=== PATIENT | female | born 1950 | race Caucasian/White ===

== ENCOUNTER 2021-12-29 09:14 | Inpatient (IN) | payer OTHER ==
[~2021-12-29] VITALS: Ht 162.6 cm; Wt 109.7 kg
[2021-12-29 10:22] LABS: Basophils # (auto) 0.1 10 ^3/uL (0-0.2); Basophils % (auto) 1.2 % (0.0-2.0); Eosinophils # (auto) 0.3 10 ^3/uL (0-0.8); Eosinophils % (auto) 6.1 % (0.0-7.0); Hematocrit 30.1 % (36.0-46.0); Lymphocytes # (auto) 0.7 10 ^3/uL (0.4-5.4); Lymphocytes % (auto) 13.4 % (10.0-50.0); Mean Corpuscular Hemoglobin 32.8 pg (28.0-32.0); Mean Corpuscular Hgb Conc. 33.3 g/dL (32.0-36.0); Mean Corpuscular Volume 98.7 fL (80.0-100.0); Monocytes # (auto) 0.3 10 ^3/uL (0-1.3); Monocytes % (auto) 5.6 % (0.0-12.0); Neutrophils # (auto) 3.9 10 ^3/uL (1.6-8.6); Neutrophils % (auto) 73.7 % (37.0-80.0); Nucleated Red Blood Cells % 0.2 %; Red Blood Cells 3.05 10^6/uL (4.0-5.20); Red Cell Distribution Width 17.8 % (11.8-14.3); White Blood Cell 5.3 10^3/uL (4.4-10.8)
[2021-12-29 10:29] LABS: Albumin 1.9 g/dL (3.4-5.0); Calcium 7.7 mg/dL (8.5-10.1); Potassium 3.9 mmol/L (3.5-5.1)
[2021-12-29 10:33] LABS: BUN/Creatinine Ratio 13.8; Bilirubin, Total 2.2 mg/dL (0.2-1.0); Total Protein 4.6 g/dL (6.4-8.2)
[2021-12-29 10:40] LABS: INR 1.34 (0.9-1.15); Partial Thromboplastin Time 32.7 sec (24.6-33.4)
[2021-12-29] MEDS ORDERED: SODIUM CHLORIDE 0.9% 1,000 ML IV ONE (10:45)
[2021-12-29 11:48] LABS: Magnesium 1.7 mg/dL (1.6-2.6)
[2021-12-29 12:35] LABS: Urine Bacteria MANY /hpf (None Seen); Urine Blood 3+ /uL (Negative); Urine Mucus FEW (None Seen); Urine WBC 261 /hpf (0 - 5); Urine WBC Clumps PRESENT /hpf (None Seen)
[2021-12-29] MEDS ORDERED: FUROSEMIDE 40 MG/4 ML VIAL IV ONE (16:15)
[2021-12-29] MEDS ORDERED: LACTULOSE 20Gm/30ML SOLN PO ONE (16:15)
[2021-12-29] MEDS ORDERED: cefTRIAXone 1GM/50ML D5W 50 ML IV ONE (16:15)
[2021-12-29] MEDS ORDERED: SPIRONOLACTONE 25 MG TAB PO ONE (16:15)
[2021-12-29] MEDS ORDERED: NITROGLYCERIN 0.4 MG SL TAB SL PRN (16:45)
[2021-12-29] MEDS ORDERED: ALBUMIN 25% 100 ML IV ONE ×2 (16:45→17:01)
[2021-12-29] MEDS ORDERED: MORPHINE SULFATE INJ 2 MG/ml SYRG IV PRN ×2 (16:45)
[2021-12-29] MEDS: SODIUM CHLORIDE 0.9% 1,000 ML IV SCH (17:06)
[2021-12-29 17:33] LABS: Cholesterol 90 mg/dL (< 200); HDL Cholesterol 32 mg/dL (40-59); LDL Cholesterol 52 mg/dL (< 100); Triglycerides 83 mg/dL (< 150)
[2021-12-29] MEDS: CLINDAMYCIN 600MG IV 50 ML IV SCH (22:47)
[2021-12-30] MEDS: SODIUM CHLORIDE 0.9% 1,000 ML IV SCH ×2 (03:27→11:22)
[2021-12-30 05:00] VITALS: BP 98/40
[2021-12-30 05:22] LABS: Basophils # (auto) 0 10 ^3/uL (0-0.2); Eosinophils # (auto) 0.3 10 ^3/uL (0-0.8); Eosinophils % (auto) 6.6 % (0.0-7.0); Hematocrit 29.4 % (36.0-46.0); Hemoglobin 9.8 g/dL (12.2-16.2); Lymphocytes # (auto) 0.5 10 ^3/uL (0.4-5.4); Lymphocytes % (auto) 10.8 % (10.0-50.0); Mean Corpuscular Hgb Conc. 33.5 g/dL (32.0-36.0); Mean Corpuscular Volume 98.5 fL (80.0-100.0); Monocytes # (auto) 0.3 10 ^3/uL (0-1.3); Monocytes % (auto) 6.3 % (0.0-12.0); Neutrophils # (auto) 3.2 10 ^3/uL (1.6-8.6); Neutrophils % (auto) 75.3 % (37.0-80.0); Nucleated Red Blood Cells % 0.3 %; Red Blood Cells 2.98 10^6/uL (4.0-5.20); White Blood Cell 4.2 10^3/uL (4.4-10.8)
[2021-12-30 05:41] LABS: Albumin 2.1 g/dL (3.4-5.0); Calcium 7.6 mg/dL (8.5-10.1); Potassium 3.6 mmol/L (3.5-5.1)
[2021-12-30 05:44] LABS: BUN/Creatinine Ratio 14.5
[2021-12-30 05:46] LABS: Bilirubin, Total 1.7 mg/dL (0.2-1.0); Total Protein 4.4 g/dL (6.4-8.2)
[2021-12-30] MEDS: CLINDAMYCIN 600MG IV 50 ML IV SCH ×2 (05:53→13:11)
[2021-12-30 08:00] VITALS: BP 87/37
[2021-12-30] MEDS: cefTRIAXone 1GM/50ML D5W 50 ML IV SCH (08:00)
[2021-12-30 08:30] VITALS: BP 87/37
[2021-12-30] MEDS ORDERED: SPIR100T4 PO (08:35)
[2021-12-30] MEDS ORDERED: FURO40TA4 PO (08:35)
[2021-12-30] MEDS ORDERED: SPIRONOLACTONE 25 MG TAB PO SCH ×2 (10:00→18:00)
[2021-12-30] MEDS ORDERED: FUROSEMIDE 40 MG TAB PO SCH (10:00)
[2021-12-30] MEDS ORDERED: ENOXAPARIN SOD 40 MG/0.4 ML SYRINGE SC SCH (10:00)
[2021-12-30] MEDS: POTASSIUM CHL 10 Meq TABLET PO SCH (10:07)
[2021-12-30] MEDS: LACTULOSE 20Gm/30ML SOLN PO SCH (10:07)
[2021-12-30] MEDS: ACETAMINOPHEN 325 MG TAB PO PRN ×2 (10:20→23:06)
[2021-12-30 12:00] VITALS: BP 74/24
[2021-12-30] MEDS ORDERED: SODIUM CHLORIDE 0.9% 250 ML IV ONE ×2 (14:45)
[2021-12-30] MEDS ORDERED: SODIUM CHLORIDE 0.9% 1,000 ML IV SCH (15:00)
[2021-12-30 16:00] VITALS: BP 81/28
[2021-12-30] MEDS ORDERED: VANCOMYCIN PER PHARMACY 0 MG IV SCH (18:00)
[2021-12-30] MEDS ORDERED: VANCOMYCIN 1GM/250ML 250 ML IV ONE (18:45)
[2021-12-30] MEDS: MIDODRINE HCL 10 MG TAB PO SCH (19:01)
[2021-12-30 22:00] VITALS: BP 81/37
[2021-12-30] MEDS ORDERED: VANCOMYCIN 500 MG in D5W 5% 100 ML IV ONE (22:45)
[2021-12-31] MEDS: ACETAMINOPHEN 325 MG TAB PO PRN (04:41)
[2021-12-31 05:00] VITALS: BP 88/45
[2021-12-31] MEDS: MIDODRINE HCL 10 MG TAB PO SCH ×3 (05:15→18:03)
[2021-12-31 05:53] LABS: Basophils # (auto) 0 10 ^3/uL (0-0.2); Basophils % (auto) 0.9 % (0.0-2.0); Eosinophils # (auto) 0.4 10 ^3/uL (0-0.8); Eosinophils % (auto) 8.2 % (0.0-7.0); Hematocrit 28.4 % (36.0-46.0); Hemoglobin 9.6 g/dL (12.2-16.2); Lymphocytes # (auto) 0.7 10 ^3/uL (0.4-5.4); Lymphocytes % (auto) 15.7 % (10.0-50.0); Mean Corpuscular Hemoglobin 33.3 pg (28.0-32.0); Mean Corpuscular Hgb Conc. 33.7 g/dL (32.0-36.0); Mean Corpuscular Volume 98.7 fL (80.0-100.0); Monocytes # (auto) 0.3 10 ^3/uL (0-1.3); Monocytes % (auto) 6.1 % (0.0-12.0); Neutrophils # (auto) 3.3 10 ^3/uL (1.6-8.6); Neutrophils % (auto) 69.1 % (37.0-80.0); Nucleated Red Blood Cells % 0.1 %; Red Blood Cells 2.88 10^6/uL (4.0-5.20); Red Cell Distribution Width 17.6 % (11.8-14.3); White Blood Cell 4.8 10^3/uL (4.4-10.8)
[2021-12-31 06:07] LABS: Calcium 7.1 mg/dL (8.5-10.1); Potassium 3.3 mmol/L (3.5-5.1)
[2021-12-31 08:00] VITALS: BP 84/35
[2021-12-31 08:05] VITALS: BP 84/55
[2021-12-31] MEDS: cefTRIAXone 1GM/50ML D5W 50 ML IV SCH (08:06)
[2021-12-31] MEDS: POTASSIUM CHL 10 Meq TABLET PO SCH (09:21)
[2021-12-31] MEDS: LACTULOSE 20Gm/30ML SOLN PO SCH (09:21)
[2021-12-31] MEDS ORDERED: FUROSEMIDE 40 MG TAB PO SCH (10:00)
[2021-12-31] MEDS ORDERED: VANCOMYCIN 1GM/250ML 250 ML IV ONE (11:00)
[2021-12-31 12:00] VITALS: BP 98/35
[2021-12-31 16:00] VITALS: BP 90/40
[2021-12-31 22:00] VITALS: BP 84/35
[2022-01-01] VITALS (17 sets, daily range): BP systolic 75–97; BP diastolic 29–45
[2022-01-01] MEDS: ACETAMINOPHEN 325 MG TAB PO PRN ×2 (00:46→18:56)
[2022-01-01] MEDS: MIDODRINE HCL 10 MG TAB PO SCH ×3 (05:19→18:45)
[2022-01-01 05:50] LABS: INR 1.4 (0.9-1.15); Partial Thromboplastin Time 39.7 sec (24.6-33.4)
[2022-01-01 05:51] LABS: BUN/Creatinine Ratio 13.9; Calcium 7.2 mg/dL (8.5-10.1); Potassium 3.4 mmol/L (3.5-5.1)
[2022-01-01 09:24] LABS: Basophils # (auto) 0.1 10 ^3/uL (0-0.2); Basophils % (auto) 1.1 % (0.0-2.0); Eosinophils # (auto) 0.5 10 ^3/uL (0-0.8); Eosinophils % (auto) 8.2 % (0.0-7.0); Hemoglobin 9.5 g/dL (12.2-16.2); Lymphocytes % (auto) 18.1 % (10.0-50.0); Mean Corpuscular Hemoglobin 32.5 pg (28.0-32.0); Mean Corpuscular Hgb Conc. 32.8 g/dL (32.0-36.0); Mean Corpuscular Volume 99.2 fL (80.0-100.0); Monocytes # (auto) 0.3 10 ^3/uL (0-1.3); Monocytes % (auto) 6.2 % (0.0-12.0); Neutrophils # (auto) 3.7 10 ^3/uL (1.6-8.6); Neutrophils % (auto) 66.4 % (37.0-80.0); Red Blood Cells 2.93 10^6/uL (4.0-5.20); Red Cell Distribution Width 17.9 % (11.8-14.3); White Blood Cell 5.6 10^3/uL (4.4-10.8)
[2022-01-01] MEDS: cefTRIAXone 1GM/50ML D5W 50 ML IV SCH (09:36)
[2022-01-01] MEDS: POTASSIUM CHL 10 Meq TABLET PO SCH (09:36)
[2022-01-01] MEDS: LACTULOSE 20Gm/30ML SOLN PO SCH (09:36)
[2022-01-01] MEDS ORDERED: ALBUMIN 25% 100 ML IV ONE (10:45)
[2022-01-01] MEDS: ALBUMIN 25% 100 ML IV SCH ×2 (12:30→18:45)
[2022-01-02] MEDS: ACETAMINOPHEN 325 MG TAB PO PRN ×2 (01:21→17:25)
[2022-01-02] MEDS: ALBUMIN 25% 100 ML IV SCH ×3 (01:23→17:24)
[2022-01-02 04:42] VITALS: BP 80/38
[2022-01-02 05:00] VITALS: BP 97/38
[2022-01-02] MEDS: MIDODRINE HCL 10 MG TAB PO SCH ×3 (05:02→17:24)
[2022-01-02 06:22] LABS: BUN/Creatinine Ratio 15.6; Calcium 7.6 mg/dL (8.5-10.1); Potassium 3.3 mmol/L (3.5-5.1)
[2022-01-02 07:01] LABS: Basophils # (auto) 0 10 ^3/uL (0-0.2); Basophils % (auto) 0.9 % (0.0-2.0); Eosinophils # (auto) 0.3 10 ^3/uL (0-0.8); Eosinophils % (auto) 7.4 % (0.0-7.0); Hematocrit 26.4 % (36.0-46.0); Hemoglobin 8.8 g/dL (12.2-16.2); Lymphocytes # (auto) 0.6 10 ^3/uL (0.4-5.4); Lymphocytes % (auto) 13.7 % (10.0-50.0); Mean Corpuscular Hemoglobin 33.2 pg (28.0-32.0); Mean Corpuscular Hgb Conc. 33.2 g/dL (32.0-36.0); Monocytes # (auto) 0.3 10 ^3/uL (0-1.3); Nucleated Red Blood Cells % 0.2 %; Red Blood Cells 2.64 10^6/uL (4.0-5.20); Red Cell Distribution Width 17.8 % (11.8-14.3); White Blood Cell 4.2 10^3/uL (4.4-10.8)
[2022-01-02 08:52] VITALS: BP 100/35
[2022-01-02] MEDS: cefTRIAXone 1GM/50ML D5W 50 ML IV SCH (08:54)
[2022-01-02] MEDS: POTASSIUM CHL 10 Meq TABLET PO SCH (10:32)
[2022-01-02] MEDS: LACTULOSE 20Gm/30ML SOLN PO SCH (10:36)
[2022-01-02 13:13] VITALS: BP 87/33
[2022-01-03] VITALS (8 sets, daily range): BP systolic 88–101; BP diastolic 31–58
[2022-01-03] MEDS: ALBUMIN 25% 100 ML IV SCH (02:18)
[2022-01-03] MEDS: MIDODRINE HCL 10 MG TAB PO SCH ×3 (06:08→20:52)
[2022-01-03] MEDS: LACTULOSE 20Gm/30ML SOLN PO SCH (09:57)
[2022-01-03] MEDS: POTASSIUM CHL 10 Meq TABLET PO SCH (09:57)
[2022-01-03] MEDS: cefTRIAXone 1GM/50ML D5W 50 ML IV SCH (09:57)
[2022-01-03] MEDS: ACETAMINOPHEN 325 MG TAB PO PRN ×2 (09:57→21:40)
[2022-01-03] MEDS ORDERED: PHYTONADIONE (VIT K)10 MG/ML 1ML VIAL SUBCUT ONE (14:00)
[2022-01-03 14:49] LABS: Basophils # (auto) 0 10 ^3/uL (0-0.2); Basophils % (auto) 0.7 % (0.0-2.0); Eosinophils # (auto) 0.2 10 ^3/uL (0-0.8); Eosinophils % (auto) 4.1 % (0.0-7.0); Hematocrit 22.9 % (36.0-46.0); Hemoglobin 7.5 g/dL (12.2-16.2); Lymphocytes # (auto) 0.6 10 ^3/uL (0.4-5.4); Lymphocytes % (auto) 11.1 % (10.0-50.0); Mean Corpuscular Hgb Conc. 32.5 g/dL (32.0-36.0); Mean Corpuscular Volume 98.5 fL (80.0-100.0); Monocytes # (auto) 0.3 10 ^3/uL (0-1.3); Monocytes % (auto) 5.4 % (0.0-12.0); Neutrophils # (auto) 4.4 10 ^3/uL (1.6-8.6); Neutrophils % (auto) 78.7 % (37.0-80.0); Red Blood Cells 2.33 10^6/uL (4.0-5.20); Red Cell Distribution Width 17.8 % (11.8-14.3); White Blood Cell 5.6 10^3/uL (4.4-10.8)
[2022-01-03 15:04] LABS: INR 1.59 (0.9-1.15); Partial Thromboplastin Time 42.3 sec (24.6-33.4)
[2022-01-04 05:00] VITALS: BP 97/45
[2022-01-04 05:12] LABS: Basophils # (auto) 0.1 10 ^3/uL (0-0.2); Eosinophils # (auto) 0.4 10 ^3/uL (0-0.8); Eosinophils % (auto) 8.1 % (0.0-7.0); Hematocrit 25.5 % (36.0-46.0); Hemoglobin 8.5 g/dL (12.2-16.2); Lymphocytes # (auto) 0.8 10 ^3/uL (0.4-5.4); Lymphocytes % (auto) 15.2 % (10.0-50.0); Mean Corpuscular Hemoglobin 32.5 pg (28.0-32.0); Mean Corpuscular Hgb Conc. 33.2 g/dL (32.0-36.0); Mean Corpuscular Volume 97.8 fL (80.0-100.0); Monocytes # (auto) 0.4 10 ^3/uL (0-1.3); Monocytes % (auto) 6.9 % (0.0-12.0); Neutrophils # (auto) 3.7 10 ^3/uL (1.6-8.6); Neutrophils % (auto) 68.8 % (37.0-80.0); Red Blood Cells 2.61 10^6/uL (4.0-5.20); Red Cell Distribution Width 18.7 % (11.8-14.3); White Blood Cell 5.5 10^3/uL (4.4-10.8)
[2022-01-04] MEDS: MIDODRINE HCL 10 MG TAB PO SCH ×3 (05:31→17:42)
[2022-01-04 05:36] LABS: Calcium 7.6 mg/dL (8.5-10.1); Potassium 3.5 mmol/L (3.5-5.1)
[2022-01-04 08:00] VITALS: BP 106/41
[2022-01-04] MEDS: POTASSIUM CHL 10 Meq TABLET PO SCH (10:12)
[2022-01-04] MEDS: LACTULOSE 20Gm/30ML SOLN PO SCH (10:13)
[2022-01-04] MEDS: ACETAMINOPHEN 325 MG TAB PO PRN (11:05)
[2022-01-04] MEDS: PHYTONADIONE(VitK) ORAL Susp 10mg/10ml(1mg/ml) PO SCH (11:05)
[2022-01-04 11:50] VITALS: BP 84/55
[2022-01-04 12:00] VITALS: BP 97/44
[2022-01-04 16:00] VITALS: BP 105/48
[2022-01-04 22:00] VITALS: BP 97/41
[2022-01-05 05:00] VITALS: BP 89/41
[2022-01-05] MEDS: MIDODRINE HCL 10 MG TAB PO SCH ×3 (05:56→17:36)
[2022-01-05 09:00] VITALS: BP 100/45
[2022-01-05] MEDS: LACTULOSE 20Gm/30ML SOLN PO SCH (09:58)
[2022-01-05] MEDS: POTASSIUM CHL 10 Meq TABLET PO SCH (09:58)
[2022-01-05] MEDS: PHYTONADIONE(VitK) ORAL Susp 10mg/10ml(1mg/ml) PO SCH (10:04)
[2022-01-05 13:00] VITALS: BP 97/28
[2022-01-05 17:00] VITALS: BP 81/26
[2022-01-05 22:00] VITALS: BP 94/36
[2022-01-06 05:00] VITALS: BP 105/48
[2022-01-06] MEDS: MIDODRINE HCL 10 MG TAB PO SCH (05:08)
[2022-01-06 08:49] VITALS: BP 114/53
== END 2022-01-06 09:39 | DRG 432 ==
LOC: ER 09:14 → EDBD 09:14 → TELE 16:41 → TELE-WESTW 21:13
PROVIDERS: ADMIT Registered Nurse; ATTEND Hospitalist
PROC: 0W9G3ZZ Drainage of Peritoneal Cavity, Percutaneous Approach (ICD-10-PCS; 2022-01-01)
PROC: 30233N1 Transfusion of Nonautologous Red Blood Cells into Peripheral Vein, Percutaneous Approach (ICD-10-PCS; principal; 2022-01-03)
DX: K74.60 Unspecified cirrhosis of liver (principal); E43 Unspecified severe protein-calorie malnutrition; R18.8 Other ascites; D68.9 Coagulation defect, unspecified; N12 Tubulo-interstitial nephritis, not specified as acute or chronic; Z68.42 Body mass index [BMI] 45.0-49.9, adult; D63.8 Anemia in other chronic diseases classified elsewhere; E66.01 Morbid (severe) obesity due to excess calories; I95.9 Hypotension, unspecified; Z20.822 Contact with and (suspected) exposure to COVID-19; N93.9 Abnormal uterine and vaginal bleeding, unspecified; N18.30 Chronic kidney disease, stage 3 unspecified; I12.9 Hypertensive chronic kidney disease with stage 1 through stage 4 chronic kidney disease, or unspecified chronic kidney disease; I87.8 Other specified disorders of veins; Z85.42 Personal history of malignant neoplasm of other parts of uterus; Z90.710 Acquired absence of both cervix and uterus; Z98.51 Tubal ligation status; Z90.49 Acquired absence of other specified parts of digestive tract; Z51.5 Encounter for palliative care; Z88.5 Allergy status to narcotic agent
CPT/HCPCS: 36415; 71045; 76705; 76856; 76942; 80048; 80053; 80061; 80202; 81001; 82140; 82270; 83036; 83615; 83690; 83735; 83880; 83986; 85025; 85610; 85730; 86850; 86900; 86901; 86920; 87040; 87086; 87205; 87426; 89051; 93005; 93306; 93970; 96361; 96365; 96367; 97163; G0378; J0696; J3430; J3490; J7060; P9047